=== PATIENT | male | born 1970 | race African-American/Black ===

== ENCOUNTER 2017-07-19 17:36 | Inpatient (IN) | payer OTHER ==
[~2017-07-19] VITALS: Ht 172.7 cm; Wt 96.2 kg
[2017-07-19 20:39] VITALS: BP 153/97
[2017-07-19] MEDS ORDERED: PNEUMOCOCCAL VACCINE POLYVALENT 0.5 ML VIAL [PPSV23] IM ONE (21:30)
[2017-07-19] MEDS: DOCUSATE SODIUM 100 MG CAPSULE PO SCH (21:58)
[2017-07-19] MEDS: SENNA 187 MG TABLET PO SCH (21:58)
[2017-07-19] MEDS: ATORVASTATIN CALCIUM 20 MG TABLET PO SCH (21:58)
[2017-07-19] MEDS: NIFEdipine 60 MG ER TABLET PO SCH (22:15)
[2017-07-19] MEDS ORDERED: DOCUSATE SODIUM 283 MG/5 ML MINI-ENEMA PR PRN (23:30)
[2017-07-20] VITALS (8 sets, daily range): BP systolic 138–159; BP diastolic 93–104
[2017-07-20] MEDS ORDERED: LISI40TA4 PO (00:03)
[2017-07-20] MEDS ORDERED: HYDR25TA PO (00:04)
[2017-07-20] MEDS ORDERED: METO25TA6 PO (00:05)
[2017-07-20] MEDS ORDERED: BACL10TA PO (00:12)
[2017-07-20 01:57] LABS: APPEARANCE,URINE CLEAR (CLEAR); GLUCOSE, URINE (UA) NEGATIVE (NEGATIVE); KETONES,URINE NEGATIVE (NEGATIVE); LEUKOCYTE ESTERASE ,URINE NEGATIVE (NEGATIVE); OCCULT BLOOD,URINE NEGATIVE (NEGATIVE); PROTEIN,URINE NEGATIVE (NEGATIVE)
[2017-07-20 01:58] LABS: ADD UA MICROSCOPIC NO
[2017-07-20 07:53] LABS: BASOPHILS % (AUTO) 0.4 % (0.0-2.0); EOSINOPHILS % (AUTO) 4.8 % (1.0-6.0); HEMOGLOBIN 14.5 g/dL (13.5-17.5); LYMPHOCYTES # (AUTO) 1.4 K/uL (1.0-4.8); LYMPHOCYTES % (AUTO) 15.2 % (22.0-44.0); MEAN CORPUSCULAR HEMOGLOBIN 24.5 pg (26.0-34.0); MEAN CORPUSCULAR HGB CONC 32.2 G/dL (31.0-37.0); MEAN CORPUSCULAR VOLUME 76 fL (80-100); MONOCYTES # (AUTO) 0.7 K/uL (0.1-1.0); MONOCYTES % (AUTO) 8.1 % (2.0-9.0); NEUTROPHILS # (AUTO) 6.4 K/uL (1.8-7.7); NEUTROPHILS % (AUTO) 71.5 % (40.0-70.0); PLATELET COUNT (AUTO) 251 K/uL (150-450); RED BLOOD CELL COUNT(AUTO) 5.92 MIL/uL (4.50-5.90); RED CELL DISTRIBUTION WIDTH 13.7 % (11.5-14.5); WHITE BLOOD COUNT (AUTO) 8.9 K/uL (4.5-11.0)
[2017-07-20 08:22] LABS: ALANINE AMINOTRANSFERASE 34 U/L (12-78); ALBUMIN 3.5 g/dL (3.4-5.0); ANION GAP 5 mmol/L (8-16); ASPARTATE AMINOTRANSFERASE 23 U/L (15-37); BILIRUBIN,TOTAL 0.7 mg/dL (0.1-1.0); CALCIUM, TOTAL 9.1 mg/dL (8.8-10.5); CARBON DIOXIDE 32 mmol/L (22-29); CHLORIDE 100 mmol/L (98-107); CREATININE 1.17 mg/dL (0.60-1.30); GLOMERULAR FILTR. RATE CALC > 60 mL/min (>60); POTASSIUM 4.1 mmol/L (3.5-5.1); SODIUM SERUM 137 mmol/L (136-145); TOTAL PROTEIN, SERUM 7.9 g/dL (6.4-8.2); UREA NITROGEN, BLOOD 18 mg/dL (7-18)
[2017-07-20] MEDS: DOCUSATE SODIUM 100 MG CAPSULE PO SCH ×2 (08:59→20:10)
[2017-07-20] MEDS: SPIRONOLACTONE 50 MG TABLET PO SCH (08:59)
[2017-07-20] MEDS: LOSARTAN POTASSIUM 50 MG TABLET PO SCH (09:00)
[2017-07-20] MEDS: HYDROCHLOROTHIAZIDE 25 MG TABLET PO SCH (09:00)
[2017-07-20 09:56] LABS: RBC MORPHOLOGY COMMENT ABNORMAL RBC MORPH
[2017-07-20] MEDS ORDERED: METO50 PO (12:11)
[2017-07-20] MEDS: SODIUM CHLORIDE 0.65% 44 ML NASAL SPRAY NASAL PRN ×2 (20:10→23:27)
[2017-07-20] MEDS: ATORVASTATIN CALCIUM 20 MG TABLET PO SCH (20:10)
[2017-07-20] MEDS: NIFEdipine 60 MG ER TABLET PO SCH (20:10)
[2017-07-20] MEDS: SENNA 187 MG TABLET PO SCH (20:10)
[2017-07-21 05:27] VITALS: BP 119/75
[2017-07-21 07:08] VITALS: BP 147/99
[2017-07-21] MEDS ORDERED: POTASSIUM CHLORIDE 20 MEQ ER TABLET PO ONE (08:00)
[2017-07-21] MEDS: SPIRONOLACTONE 50 MG TABLET PO SCH (08:07)
[2017-07-21] MEDS: DOCUSATE SODIUM 100 MG CAPSULE PO SCH ×2 (08:07→21:24)
[2017-07-21] MEDS: LOSARTAN POTASSIUM 50 MG TABLET PO SCH (08:07)
[2017-07-21] MEDS: HYDROCHLOROTHIAZIDE 25 MG TABLET PO SCH (08:07)
[2017-07-21] MEDS: CYCLOBENZAPRINE HCL 10 MG TABLET PO PRN (08:12)
[2017-07-21] MEDS: LABETALOL HCL 100 MG TABLET PO SCH ×2 (09:12→21:24)
[2017-07-21 09:40] VITALS: BP 141/94
[2017-07-21 15:20] VITALS: BP 109/72
[2017-07-21 21:00] VITALS: BP 134/88
[2017-07-21] MEDS: FLUTICASONE PROPIONATE 50 MCG/SPRAY 16 GM NASAL SPRAY NASAL SCH (21:24)
[2017-07-21] MEDS: ATORVASTATIN CALCIUM 20 MG TABLET PO SCH (21:24)
[2017-07-21] MEDS: SENNA 187 MG TABLET PO SCH (21:24)
[2017-07-21] MEDS: NIFEdipine 60 MG ER TABLET PO SCH (21:24)
[2017-07-22 00:02] VITALS: BP 138/87
[2017-07-22 07:29] VITALS: BP 146/95
[2017-07-22] MEDS: LABETALOL HCL 100 MG TABLET PO SCH ×2 (08:54→20:27)
[2017-07-22] MEDS: DOCUSATE SODIUM 100 MG CAPSULE PO SCH ×2 (08:55→20:27)
[2017-07-22] MEDS: SPIRONOLACTONE 50 MG TABLET PO SCH (08:55)
[2017-07-22] MEDS: HYDROCHLOROTHIAZIDE 25 MG TABLET PO SCH (08:55)
[2017-07-22] MEDS: LOSARTAN POTASSIUM 50 MG TABLET PO SCH (08:55)
[2017-07-22] MEDS: FLUTICASONE PROPIONATE 50 MCG/SPRAY 16 GM NASAL SPRAY NASAL SCH ×2 (10:10→20:27)
[2017-07-22 15:37] VITALS: BP 118/84
[2017-07-22 20:26] VITALS: BP 144/78
[2017-07-22] MEDS: SENNA 187 MG TABLET PO SCH (20:27)
[2017-07-22] MEDS: NIFEdipine 60 MG ER TABLET PO SCH (20:27)
[2017-07-22] MEDS: ATORVASTATIN CALCIUM 20 MG TABLET PO SCH (20:27)
[2017-07-23 03:32] VITALS: BP 113/59
[2017-07-23 07:15] VITALS: BP 134/81
[2017-07-23] MEDS: HYDROCHLOROTHIAZIDE 25 MG TABLET PO SCH (08:02)
[2017-07-23] MEDS: LOSARTAN POTASSIUM 50 MG TABLET PO SCH (08:02)
[2017-07-23] MEDS: DOCUSATE SODIUM 100 MG CAPSULE PO SCH ×3 (08:02→21:00)
[2017-07-23] MEDS: SPIRONOLACTONE 50 MG TABLET PO SCH (08:02)
[2017-07-23] MEDS: FLUTICASONE PROPIONATE 50 MCG/SPRAY 16 GM NASAL SPRAY NASAL SCH ×2 (08:02→19:21)
[2017-07-23 16:33] VITALS: BP 122/91
[2017-07-23 19:18] VITALS: BP 135/89
[2017-07-23] MEDS: ATORVASTATIN CALCIUM 20 MG TABLET PO SCH (19:21)
[2017-07-23] MEDS: SENNA 187 MG TABLET PO SCH ×2 (19:21→21:00)
[2017-07-23] MEDS: NIFEdipine 60 MG ER TABLET PO SCH (19:21)
[2017-07-23] MEDS: CYCLOBENZAPRINE HCL 10 MG TABLET PO PRN (19:21)
[2017-07-24 00:19] VITALS: BP 118/80
[2017-07-24 07:00] VITALS: BP 147/83
[2017-07-24] MEDS: LOSARTAN POTASSIUM 50 MG TABLET PO SCH (08:19)
[2017-07-24] MEDS: HYDROCHLOROTHIAZIDE 25 MG TABLET PO SCH (08:19)
[2017-07-24] MEDS: SPIRONOLACTONE 50 MG TABLET PO SCH (08:19)
[2017-07-24] MEDS: FLUTICASONE PROPIONATE 50 MCG/SPRAY 16 GM NASAL SPRAY NASAL SCH ×2 (08:19→20:34)
[2017-07-24] MEDS: DOCUSATE SODIUM 100 MG CAPSULE PO SCH (08:19)
[2017-07-24 15:30] VITALS: BP 154/94
[2017-07-24] MEDS: NIFEdipine 30 MG ER TABLET PO SCH (20:34)
[2017-07-24] MEDS: ATORVASTATIN CALCIUM 20 MG TABLET PO SCH (20:34)
[2017-07-24] MEDS: DOCUSATE SODIUM 250 MG CAPSULE PO SCH (21:00)
[2017-07-24] MEDS: SENNA 187 MG TABLET PO SCH (21:09)
[2017-07-24 21:37] VITALS: BP 127/78
[2017-07-24 23:26] VITALS: BP 117/75
[2017-07-25 06:14] LABS: ANION GAP 7 mmol/L (8-16); CALCIUM, TOTAL 8.8 mg/dL (8.8-10.5); CARBON DIOXIDE 27 mmol/L (22-29); CHLORIDE 99 mmol/L (98-107); CREATININE 1.13 mg/dL (0.60-1.30); GLOMERULAR FILTR. RATE CALC > 60 mL/min (>60); PHOSPHORUS 3.1 mg/dL (2.5-4.9); POTASSIUM 4.3 mmol/L (3.5-5.1); SODIUM SERUM 133 mmol/L (136-145); UREA NITROGEN, BLOOD 17 mg/dL (7-18)
[2017-07-25 07:23] VITALS: BP 134/79
[2017-07-25] MEDS: LOSARTAN POTASSIUM 50 MG TABLET PO SCH (08:09)
[2017-07-25] MEDS: SPIRONOLACTONE 50 MG TABLET PO SCH (08:09)
[2017-07-25] MEDS: FLUTICASONE PROPIONATE 50 MCG/SPRAY 16 GM NASAL SPRAY NASAL SCH ×3 (08:10→20:20)
[2017-07-25] MEDS: HYDROCHLOROTHIAZIDE 25 MG TABLET PO SCH (08:10)
[2017-07-25] MEDS: DOCUSATE SODIUM 250 MG CAPSULE PO SCH ×2 (08:13→20:21)
[2017-07-25] MEDS ORDERED: POLYETHYLENE GLYCOL 3350 17 GM PACKET PO SCH (09:00)
[2017-07-25 16:25] VITALS: BP 132/93
[2017-07-25] MEDS: NIFEdipine 30 MG ER TABLET PO SCH (20:21)
[2017-07-25] MEDS: SENNA 187 MG TABLET PO SCH (20:21)
[2017-07-25] MEDS: ATORVASTATIN CALCIUM 20 MG TABLET PO SCH (20:21)
[2017-07-25 20:27] VITALS: BP 133/76
[2017-07-25 23:45] VITALS: BP 127/85
[2017-07-26 07:20] VITALS: BP 134/94
[2017-07-26] MEDS: SPIRONOLACTONE 50 MG TABLET PO SCH (08:10)
[2017-07-26] MEDS: HYDROCHLOROTHIAZIDE 25 MG TABLET PO SCH (08:10)
[2017-07-26] MEDS: DOCUSATE SODIUM 250 MG CAPSULE PO SCH ×2 (08:10→21:31)
[2017-07-26] MEDS: FLUTICASONE PROPIONATE 50 MCG/SPRAY 16 GM NASAL SPRAY NASAL SCH ×2 (08:10→21:32)
[2017-07-26] MEDS: LOSARTAN POTASSIUM 50 MG TABLET PO SCH (08:10)
[2017-07-26 16:27] VITALS: BP 149/61
[2017-07-26 21:28] VITALS: BP 129/76
[2017-07-26] MEDS: ATORVASTATIN CALCIUM 20 MG TABLET PO SCH (21:31)
[2017-07-26] MEDS: SENNA 187 MG TABLET PO SCH (21:31)
[2017-07-26] MEDS: NIFEdipine 60 MG ER TABLET PO SCH (21:31)
[2017-07-27 01:45] VITALS: BP 154/90
[2017-07-27 07:20] VITALS: BP 127/90
[2017-07-27] MEDS: FLUTICASONE PROPIONATE 50 MCG/SPRAY 16 GM NASAL SPRAY NASAL SCH ×3 (08:01→21:49)
[2017-07-27] MEDS: DOCUSATE SODIUM 250 MG CAPSULE PO SCH ×2 (08:01→21:49)
[2017-07-27] MEDS: SPIRONOLACTONE 50 MG TABLET PO SCH (08:01)
[2017-07-27] MEDS: HYDROCHLOROTHIAZIDE 25 MG TABLET PO SCH (08:02)
[2017-07-27] MEDS: LOSARTAN POTASSIUM 50 MG TABLET PO SCH (08:02)
[2017-07-27 16:45] VITALS: BP 155/103
[2017-07-27 21:25] VITALS: BP 123/75
[2017-07-27] MEDS: SENNA 187 MG TABLET PO SCH (21:49)
[2017-07-27] MEDS: NIFEdipine 60 MG ER TABLET PO SCH (21:49)
[2017-07-27] MEDS: ATORVASTATIN CALCIUM 20 MG TABLET PO SCH (21:49)
[2017-07-28 02:53] VITALS: BP 134/77
[2017-07-28] MEDS: ACETAMINOPHEN 325 MG TABLET PO PRN ×2 (02:53→20:51)
[2017-07-28 07:12] VITALS: BP 113/77
[2017-07-28] MEDS: FLUTICASONE PROPIONATE 50 MCG/SPRAY 16 GM NASAL SPRAY NASAL SCH ×2 (08:10→20:52)
[2017-07-28] MEDS: LOSARTAN POTASSIUM 50 MG TABLET PO SCH (08:10)
[2017-07-28] MEDS: HYDROCHLOROTHIAZIDE 25 MG TABLET PO SCH (08:11)
[2017-07-28] MEDS: DOCUSATE SODIUM 250 MG CAPSULE PO SCH ×2 (08:11→20:51)
[2017-07-28] MEDS: SPIRONOLACTONE 50 MG TABLET PO SCH (08:11)
[2017-07-28 15:26] VITALS: BP 141/99
[2017-07-28 20:48] VITALS: BP 130/70
[2017-07-28] MEDS: ATORVASTATIN CALCIUM 20 MG TABLET PO SCH (20:51)
[2017-07-28] MEDS: SENNA 187 MG TABLET PO SCH (20:51)
[2017-07-28] MEDS: NIFEdipine 60 MG ER TABLET PO SCH (20:51)
[2017-07-29 04:25] VITALS: BP 127/86
[2017-07-29 07:05] VITALS: BP 138/99
[2017-07-29] MEDS: LOSARTAN POTASSIUM 50 MG TABLET PO SCH (07:50)
[2017-07-29] MEDS: FLUTICASONE PROPIONATE 50 MCG/SPRAY 16 GM NASAL SPRAY NASAL SCH ×2 (07:50→20:44)
[2017-07-29] MEDS: HYDROCHLOROTHIAZIDE 25 MG TABLET PO SCH (07:50)
[2017-07-29] MEDS: SPIRONOLACTONE 50 MG TABLET PO SCH (07:51)
[2017-07-29] MEDS: DOCUSATE SODIUM 250 MG CAPSULE PO SCH ×2 (07:51→20:11)
[2017-07-29 15:49] VITALS: BP 121/91
[2017-07-29] MEDS: SENNA 187 MG TABLET PO SCH (20:11)
[2017-07-29 20:18] VITALS: BP 142/93
[2017-07-29] MEDS: ATORVASTATIN CALCIUM 20 MG TABLET PO SCH (20:44)
[2017-07-29] MEDS: NIFEdipine 60 MG ER TABLET PO SCH (20:44)
[2017-07-30] VITALS: BP 142/84
[2017-07-30 07:21] VITALS: BP 126/79
[2017-07-30] MEDS: SPIRONOLACTONE 50 MG TABLET PO SCH (08:48)
[2017-07-30] MEDS: LOSARTAN POTASSIUM 50 MG TABLET PO SCH (08:48)
[2017-07-30] MEDS: HYDROCHLOROTHIAZIDE 25 MG TABLET PO SCH (08:49)
[2017-07-30] MEDS: DOCUSATE SODIUM 250 MG CAPSULE PO SCH ×2 (08:49→21:19)
[2017-07-30] MEDS: ACETAMINOPHEN 325 MG TABLET PO PRN (08:50)
[2017-07-30] MEDS: FLUTICASONE PROPIONATE 50 MCG/SPRAY 16 GM NASAL SPRAY NASAL SCH ×2 (08:56→21:19)
[2017-07-30 16:19] VITALS: BP 151/95
[2017-07-30 21:17] VITALS: BP 161/105
[2017-07-30] MEDS: ATORVASTATIN CALCIUM 20 MG TABLET PO SCH (21:19)
[2017-07-30] MEDS: NIFEdipine 60 MG ER TABLET PO SCH (21:20)
[2017-07-30] MEDS: SENNA 187 MG TABLET PO SCH (21:20)
[2017-07-31 01:52] VITALS: BP 130/90
[2017-07-31 07:32] VITALS: BP 141/91
[2017-07-31] MEDS: FLUTICASONE PROPIONATE 50 MCG/SPRAY 16 GM NASAL SPRAY NASAL SCH ×2 (09:00→20:44)
[2017-07-31] MEDS: SPIRONOLACTONE 50 MG TABLET PO SCH (09:38)
[2017-07-31] MEDS: LOSARTAN POTASSIUM 50 MG TABLET PO SCH (09:38)
[2017-07-31] MEDS: HYDROCHLOROTHIAZIDE 25 MG TABLET PO SCH (09:39)
[2017-07-31] MEDS: DOCUSATE SODIUM 250 MG CAPSULE PO SCH ×2 (09:39→20:47)
[2017-07-31 15:21] VITALS: BP 146/98
[2017-07-31 20:44] VITALS: BP 147/98
[2017-07-31] MEDS: ACETAMINOPHEN 325 MG TABLET PO PRN (20:44)
[2017-07-31] MEDS: ATORVASTATIN CALCIUM 20 MG TABLET PO SCH (20:44)
[2017-07-31] MEDS: NIFEdipine 60 MG ER TABLET PO SCH (20:44)
[2017-07-31] MEDS: SENNA 187 MG TABLET PO SCH (20:47)
[2017-08-01 04:02] VITALS: BP 118/64
[2017-08-01 07:34] VITALS: BP 136/65
[2017-08-01] MEDS: FLUTICASONE PROPIONATE 50 MCG/SPRAY 16 GM NASAL SPRAY NASAL SCH ×2 (07:59→20:07)
[2017-08-01] MEDS: HYDROCHLOROTHIAZIDE 25 MG TABLET PO SCH (08:00)
[2017-08-01] MEDS: LOSARTAN POTASSIUM 50 MG TABLET PO SCH (08:00)
[2017-08-01] MEDS: DOCUSATE SODIUM 250 MG CAPSULE PO SCH ×2 (08:00→20:07)
[2017-08-01] MEDS: SPIRONOLACTONE 50 MG TABLET PO SCH (08:00)
[2017-08-01 20:04] VITALS: BP 147/90
[2017-08-01] MEDS: SENNA 187 MG TABLET PO SCH (20:06)
[2017-08-01] MEDS: NIFEdipine 60 MG ER TABLET PO SCH (20:06)
[2017-08-01] MEDS: ATORVASTATIN CALCIUM 20 MG TABLET PO SCH (20:07)
[2017-08-02 01:45] VITALS: BP 144/91
[2017-08-02 08:00] VITALS: BP 134/91
[2017-08-02] MEDS: HYDROCHLOROTHIAZIDE 25 MG TABLET PO SCH (08:23)
[2017-08-02] MEDS: FLUTICASONE PROPIONATE 50 MCG/SPRAY 16 GM NASAL SPRAY NASAL SCH ×3 (08:23→20:39)
[2017-08-02] MEDS: LOSARTAN POTASSIUM 50 MG TABLET PO SCH (08:23)
[2017-08-02] MEDS: SPIRONOLACTONE 50 MG TABLET PO SCH (08:23)
[2017-08-02] MEDS: DOCUSATE SODIUM 250 MG CAPSULE PO SCH ×3 (08:23→20:39)
[2017-08-02 15:27] VITALS: BP 138/92
[2017-08-02 20:36] VITALS: BP 148/92
[2017-08-02] MEDS: SENNA 187 MG TABLET PO SCH (20:39)
[2017-08-02] MEDS: ATORVASTATIN CALCIUM 20 MG TABLET PO SCH (20:39)
[2017-08-02] MEDS: NIFEdipine 60 MG ER TABLET PO SCH (20:39)
[2017-08-03 03:27] VITALS: BP 132/77
[2017-08-03 07:31] VITALS: BP 144/90
[2017-08-03] MEDS: SPIRONOLACTONE 50 MG TABLET PO SCH (08:29)
[2017-08-03] MEDS: FLUTICASONE PROPIONATE 50 MCG/SPRAY 16 GM NASAL SPRAY NASAL SCH ×2 (08:29→20:51)
[2017-08-03] MEDS: DOCUSATE SODIUM 250 MG CAPSULE PO SCH ×2 (08:29→20:49)
[2017-08-03] MEDS: HYDROCHLOROTHIAZIDE 25 MG TABLET PO SCH (08:30)
[2017-08-03] MEDS: LOSARTAN POTASSIUM 50 MG TABLET PO SCH (08:30)
[2017-08-03 15:30] VITALS: BP 138/97
[2017-08-03 20:45] VITALS: BP 144/95
[2017-08-03] MEDS: ATORVASTATIN CALCIUM 20 MG TABLET PO SCH (20:49)
[2017-08-03] MEDS: NIFEdipine 60 MG ER TABLET PO SCH (20:50)
[2017-08-03] MEDS: SENNA 187 MG TABLET PO SCH (20:50)
[2017-08-04 02:03] VITALS: BP 138/87
[2017-08-04 07:32] VITALS: BP 116/73
[2017-08-04] MEDS: FLUTICASONE PROPIONATE 50 MCG/SPRAY 16 GM NASAL SPRAY NASAL SCH ×2 (08:12→21:00)
[2017-08-04] MEDS: LOSARTAN POTASSIUM 50 MG TABLET PO SCH (08:12)
[2017-08-04] MEDS: SPIRONOLACTONE 50 MG TABLET PO SCH (08:12)
[2017-08-04] MEDS: DOCUSATE SODIUM 250 MG CAPSULE PO SCH ×2 (08:13→21:00)
[2017-08-04] MEDS: HYDROCHLOROTHIAZIDE 25 MG TABLET PO SCH (08:13)
[2017-08-04 15:13] VITALS: BP 133/89
[2017-08-04 20:20] VITALS: BP 111/77
[2017-08-04] MEDS: SENNA 187 MG TABLET PO SCH (21:00)
[2017-08-04] MEDS: ATORVASTATIN CALCIUM 20 MG TABLET PO SCH (21:02)
[2017-08-04] MEDS: NIFEdipine 60 MG ER TABLET PO SCH (21:02)
[2017-08-05 02:44] VITALS: BP 147/95
[2017-08-05 07:30] VITALS: BP 146/84
[2017-08-05] MEDS: SPIRONOLACTONE 50 MG TABLET PO SCH (07:57)
[2017-08-05] MEDS: FLUTICASONE PROPIONATE 50 MCG/SPRAY 16 GM NASAL SPRAY NASAL SCH ×2 (07:57→20:00)
[2017-08-05] MEDS: HYDROCHLOROTHIAZIDE 25 MG TABLET PO SCH (08:00)
[2017-08-05] MEDS: DOCUSATE SODIUM 250 MG CAPSULE PO SCH ×2 (08:00→20:01)
[2017-08-05] MEDS: LOSARTAN POTASSIUM 50 MG TABLET PO SCH (08:00)
[2017-08-05] MEDS ORDERED: LOSA50TA37 PO (14:07)
[2017-08-05] MEDS ORDERED: FLUT16H NASAL (14:07)
[2017-08-05] MEDS ORDERED: ATOR20TA86 PO (14:07)
[2017-08-05] MEDS ORDERED: NIFE60TA71 PO (14:07)
[2017-08-05] MEDS ORDERED: DOCU250C91 PO (14:07)
[2017-08-05] MEDS ORDERED: SPIR50 PO (14:07)
[2017-08-05] MEDS ORDERED: NIFE10 PO (14:07)
[2017-08-05 15:02] VITALS: BP 135/84
[2017-08-05 19:57] VITALS: BP 127/76
[2017-08-05] MEDS: NIFEdipine 60 MG ER TABLET PO SCH (20:00)
[2017-08-05] MEDS: SENNA 187 MG TABLET PO SCH (20:00)
[2017-08-05] MEDS: ATORVASTATIN CALCIUM 20 MG TABLET PO SCH (20:01)
[2017-08-06 04:00] VITALS: BP 146/90
[2017-08-06 07:23] VITALS: BP 148/90
[2017-08-06] MEDS: FLUTICASONE PROPIONATE 50 MCG/SPRAY 16 GM NASAL SPRAY NASAL SCH (07:50)
[2017-08-06] MEDS: DOCUSATE SODIUM 250 MG CAPSULE PO SCH ×2 (07:50→08:43)
[2017-08-06] MEDS: SPIRONOLACTONE 50 MG TABLET PO SCH (07:50)
[2017-08-06] MEDS: LOSARTAN POTASSIUM 50 MG TABLET PO SCH (07:50)
[2017-08-06] MEDS: HYDROCHLOROTHIAZIDE 25 MG TABLET PO SCH (07:50)
== END 2017-08-06 10:20 | disposition home or self-care (01) | DRG 56 ==
LOC: 2WR 19:40
PROVIDERS: ADMIT Physical Medicine & Rehabilitation; ATTEND Physical Medicine & Rehabilitation
DX: G81.91 Hemiplegia, unspecified affecting right dominant side (principal); I61.1 Nontraumatic intracerebral hemorrhage in hemisphere, cortical; E87.1 Hypo-osmolality and hyponatremia; R47.01 Aphasia; I16.1 Hypertensive emergency; E66.9 Obesity, unspecified; G47.33 Obstructive sleep apnea (adult) (pediatric); H54.7 Unspecified visual loss; I10 Essential (primary) hypertension; K59.00 Constipation, unspecified; R47.1 Dysarthria and anarthria; F43.21 Adjustment disorder with depressed mood; R09.81 Nasal congestion; J32.9 Chronic sinusitis, unspecified; Z79.899 Other long term (current) drug therapy; Z83.3 Family history of diabetes mellitus; Z91.19 Patient's noncompliance with other medical treatment and regimen; Z68.32 Body mass index [BMI] 32.0-32.9, adult
CPT/HCPCS: 83735; 84100; 87081; 92507; 92508; 92523; 93970; 94660; 97032; 97110; 97112; 97116; 97150; 97162; 97167; 97530; 97535; 99366